=== PATIENT | male | born 1975 | race Caucasian/White ===

== ENCOUNTER → 2017-04-10 | Day surgery (SDC) | payer OTHER ==
[~2017-04-10] MED LIST: BACITRACIN 50,000 UNIT VIAL ONE; BUPIVACAINE HCL 0.5% 10ML MPF VIAL INJ ONE; CEFAZOLIN SOD 2 GM/D5W 50ML 50 ML IV ONE; FENTANYL CITRATE/PF 100MCG/2 ML INJ ONE; INSULIN REGULAR, HUMAN 100 UNIT/1 ML 3ML VIAL ONE; JARDIANCE PO; LIDOCAINE HCL 2% LOCAL INJ 5 ML SDV VIAL INJ ONE; LIPITOR20 MG PO; LISINOPRIL2.5 MG PO; METFORMIN HCL500 MG PO; MIDAZOLAM HCL 2 MG/2 ML VIAL ONE; MUPIROCIN 2% OINT 22 GM TUBE ONE; ONDANSETRON HCL INJ 2 MG/ML VIAL ONE; PHENYLEPHRINE HCL 1% 10 MG/ML VIAL ONE; PROPOFOL IV EMULSION 10 MG/ML 20 ML VIAL ONE; SEVOFLURANE INHAL SOLN 250 ML PEN BTL ONE
[2017-04-10 08:34] LABS: ANION GAP 11.4 mmol/L (8-16); BLOOD UREA NITROGEN 20 mg/dL (7-26); BUN/CREATININE RATIO 24 (6-25); CALCIUM 9.5 mg/dL (8.4-10.2); CARBON DIOXIDE 24 mmol/L (22-29); CHLORIDE 103 mmol/L (98-107); CREATININE, SERUM 0.85 mg/dL (0.72-1.25); EST GLOMERULAR FILTRATION RATE > 60 ML/MIN (60-); GLUCOSE 212 mg/dL (74-118); POTASSIUM 4.4 mmol/L (3.5-5.1); SODIUM 134 mmol/L (136-145)
--- NOTE | 2017-07-03 10:50 | Operative Report ---
DATE OF PROCEDURE: April 10, 2017 PREOPERATIVE DIAGNOSES 1. Plantar flexus metatarsal. 2. Ulcer, left foot. POSTOPERATIVE DIAGNOSES 1. Plantar flexus metatarsal. 2. Ulcer, left foot. PROCEDURES 1. Fifth metatarsal head resection, left foot. 2. Excision of the ulcer with flap closure, left foot. 3. Use of posterior splint. PATHOLOGY: Removed ulcer sent for pathology. ANESTHESIA: General anesthetic. HEMOSTASIS: Pneumatic ankle tourniquet. ESTIMATED BLOOD LOSS: Less than 10 mL. MATERIALS: Human allograft. COMPLICATIONS: None. CONDITION: Stable. PROCEDURE IN DETAIL: Under mild sedation, the patient was brought to the operating room and placed on the operating table in the supine position. Following IV sedation, anesthesia was obtained with general anesthetic. At this point, the left foot was scrubbed, prepped and draped in the usual aseptic manner. It was then lowered to the table. Attention was then directed to the dorsal aspect of the 5th metatarsal where an incision was made in the metatarsal. The incision was deepened down to the level of the metatarsal. Once the metatarsal was exposed at the capsule, the 5th head of the metatarsal was then removed in order to prevent the area of pressure right at the area of the ulcer. It was then passed from the operating table and sent for pathology. The area was then flushed with copious amount of normal sterile saline solution. Excision of the ulcer with flap closure. At this point, sharp excision of the ulcer with a 15 blade and flap closure was performed to the plantar aspect of the left foot. All the ulcer was excised in toto. The area was then flipped in order to close it. The flap was then secured closing in layers with 3-0 Vicryl, 4-0 Vicryl and 4-0 nylon. Before closure, the use of human allograft was then entered into the plantar aspect where the ulcer was in order to promote healing of the area and prevent adhesions and decreasing amount of fibrotic tissue. All incisions were then flushed with copious amounts of normal sterile saline solution. They were closed in layers closing with 3-0 Vicryl, 4-0 Vicryl and 4-0 nylon. The tourniquet was deflated. There was noted to be hyperemic response to all the digits. A clean dressing was applied consisting of Adaptic, 4 x 4's, Kerlix, Webril, and a posterior splint was applied. It was secured utilizing an Bobby bandage. The patient tolerated the procedure and anesthesia well without complications. He was transported to the recovery room with vital signs stable and vascular status intact. The patient will be discharged home when he meets criteria. He was given instructions to be nonweightbearing, to ice and elevate the foot while at rest. Follow up with me in the office, and to call the office for any questions, concerns or any problems arise. Job#: [id number] [facility]
== END | disposition home or self-care (01) ==
LOC: OR 07:22
PROVIDERS: ATTEND Podiatrist Foot & Ankle Surgery
DX: M21.272 Flexion deformity, left ankle and toes (principal); L97.529 Non-pressure chronic ulcer of other part of left foot with unspecified severity; E11.9 Type 2 diabetes mellitus without complications; G47.33 Obstructive sleep apnea (adult) (pediatric); Z79.82 Long term (current) use of aspirin; Z87.891 Personal history of nicotine dependence
CPT/HCPCS: 14040; 28113; 36415; 76001; 80048; 82948; 87071; 87075; 87205; C1762; J2001; J2250; J2370; J2405